=== PATIENT | male | born 1975 | race Caucasian/White ===

== ENCOUNTER 2017-08-28 14:30 | Emergency (ER) | payer BC ==
[~2017-08-28] VITALS: Ht 157.5 cm; Wt 74.0 kg
[2017-08-28 14:30] VITALS: Ht 157.5 cm; Wt 74.0 kg
[2017-08-28] MEDS ORDERED: LORAZEPAM 2 MG INJ ONE (14:54)
[2017-08-28] MEDS ORDERED: LIDOCAINE 1%/EPI 30 ML INJ INJ STA (14:56)
[2017-08-28] MEDS ORDERED: LORAZEPAM 2 MG INJ IV ONE ×4 (15:00→15:30)
[2017-08-28] MEDS ORDERED: DIPHTH/TET/ACEL PERTUSS (ADULT) 0.5 ML VIAL IM* ONE (15:00)
[2017-08-28 16:00] LABS: BASOPHIL # 0.2 10^3/ul (0.0-0.1); BASOPHILS % 2.3 % (0.0-2.0); EOSINOPHILS # 0.1 10^3/ul (0.0-0.5); EOSINOPHILS % 1.2 % (0.0-7.0); HEMATOCRIT 32.7 % (42.0-52.0); HEMOGLOBIN 10.6 g/dl (14.0-18.0); LYMPHOCYTES # 1.6 10^3/ul (0.8-2.9); LYMPHOCYTES % 22.9 % (15.0-51.0); MEAN CORPUSCULAR HEMOGLOBIN 24.7 pg (29.0-33.0); MEAN CORPUSCULAR HGB CONC 32.4 g/dl (32.0-37.0); MEAN PLATELET VOLUME 9.6 fl (7.4-10.4); MONOCYTE # 0.7 10^3/ul (0.3-0.9); MONOCYTES % 9.9 % (0.0-11.0); NEUTROPHIL # 4.4 10^3/ul (1.6-7.5); NEUTROPHILS % 63.4 % (39.0-77.0); PLATELET COUNT 205 10^3/UL (140-415); RED CELL DISTRIBUTION WIDTH 18.6 % (11.5-14.5); WHITE BLOOD COUNT 6.9 10^3/ul (4.8-10.8)
[2017-08-28 16:17] LABS: INR 0.94; PROTIME 12.7 Sec (11.9-14.9)
[2017-08-28 16:18] LABS: PARTIAL THROMBOPLASTIN TIME 28.6 Sec (25.0-35.0)
[2017-08-28 16:20] LABS: CALCIUM 8.4 mg/dl (8.4-10.2); CREATININE 0.54 mg/dl (0.61-1.24); POTASSIUM 3.8 mmol/L (3.5-5.1)
--- NOTE | 2017-08-28 17:55 | ERD ---
ER Documentation Chief Complaint Chief Complaint PT IS BIBA FOR LAC ON HEAD AFTER A MECHANICAL FALL ETOH ON BOARD HPI This is a 42-year-old Macanese-speaking male. An coffee sommelier was used. The patient was brought in by ambulance for alcohol intoxication, mechanical fall and laceration of the head. Later after the patient had been stabilized his family arrives and states that he has developmental delay and has reported suicidal thoughts recently. He states that he had been trying to drink himself to . The family does advise that the patient was ambulatory tripped and fell and hit his head. It was witnessed. Upon arrival the patient has significant bleeding from the left forehead with evidence of pulsatile bleeding. The patient is poorly cooperative, trying to get up and move around and slightly combative. The patient cannot provide adequate history given his level of intoxication. ROS Limited given intoxication Medications Home Meds Unable to Obtain Active Prescriptions or Reported Meds Allergies Allergies: Coded Allergies: No Known Allergy (Unverified , 08/28/17) PMhx/Soc Medical and Surgical Hx: Unable to obtain Hx Alcohol Use: Yes Hx Substance Use: Yes Hx Tobacco Use: Yes Smoking Status: Current every day smoker FmHx Family History: No diabetes Physical Exam Vitals Vital Signs Date Time Temp Pulse Resp B/P Pulse Ox O2 Delivery O2 Flow Rate FiO2 08/28/17 18:10 98.2 77 18 117/58 99 08/28/17 16:49 98.5 98 22 130/84 100 Room Air 08/28/17 14:30 98.5 78 18 135/86 99 Physical Exam General: Significantly intoxicated with evidence of head trauma Head: The patient has a frontal head hematoma on the left side of the forehead with a approximate 3 cm laceration that is oblique with a pulsatile stream of blood visualized. Eyes: Pupils equally reactive, EOM intact ENT: Moist mucous membranes Neck: Supple, no lymphadenopathy, unable to assess but no deformities or step- offs to the midline, remains in cervical collar Respiratory: Lungs clear bilaterally, no distress Cardiovascular: RRR, no murmurs, rubs, or gallops Abdominal: Soft, non-tender, non-distended, no peritoneal signs : Deferred MSK: No edema, no unilateral swelling, 5/5 strength Neurologic: Significantly intoxicated but moving all 4 extremities Skin: Forehead laceration as described above, the base of the wound is difficult to visualize given pulsatile vasculature Psych: Normal mood Result Diagram: 08/28/17 1545 08/28/17 1545 Results 24 hrs Laboratory Tests Test 08/28/17 15:45 White Blood Count 6.910^3/ul Red Blood Count 4.3010^6/ul Hemoglobin 10.6g/dl Hematocrit 32.7% Mean Corpuscular Volume 76.0fl Mean Corpuscular Hemoglobin 24.7pg Mean Corpuscular Hemoglobin Concent 32.4g/dl Red Cell Distribution Width 18.6% Platelet Count 17413^3/UL Mean Platelet Volume 9.6fl Neutrophils % 63.4% Lymphocytes % 22.9% Monocytes % 9.9% Eosinophils % 1.2% Basophils % 2.3% Nucleated Red Blood Cells % 0.0/100WBC Neutrophils # 4.410^3/ul Lymphocytes # 1.610^3/ul Monocytes # 0.710^3/ul Eosinophils # 0.110^3/ul Basophils # 0.210^3/ul Nucleated Red Blood Cells # 0.010^3/ul Prothrombin Time 12.7Sec Prothrombin Time Ratio 1.0 INR International Normalized Ratio 0.94 Activated Partial Thromboplast Time 28.6Sec Sodium Level 134mmol/L Potassium Level 3.8mmol/L Chloride Level 96mmol/L Carbon Dioxide Level 22mmol/L Anion Gap 20 Blood Urea Nitrogen 2mg/dl Creatinine 0.54mg/dl Glucose Level 109mg/dl Calcium Level 8.4mg/dl Ethyl Alcohol Level 440.0mg/dl Current Medications Medications (Trade) Dose Ordered Sig/Terri Route PRN Reason Start Time Stop Time Status Last Admin Dose Admin Lorazepam (Ativan) 2 mg STK-MED ONCE .ROUTE 08/28/17 14:54 08/28/17 14:55 DC Lidocaine/ Epinephrine (Xylocaine 1%/ Epi (Pf)) 30 ml ONCE STAT INJ 08/28/17 14:56 08/28/17 15:02 DC Diphtheria/ Tetanus/Acell Pertussis (Adacel) 0.5 ml ONCE ONCE IM* 08/28/17 15:00 08/28/17 15:02 DC 08/28/17 15:37 Lorazepam (Ativan) 1 mg ONCE ONCE IV 08/28/17 15:00 08/28/17 15:02 DC 08/28/17 15:28 Lorazepam (Ativan) 1 mg ONCE ONCE IV 08/28/17 15:30 08/28/17 15:31 DC 08/28/17 15:30 Lorazepam (Ativan) 1 mg ONCE ONCE IV 08/28/17 15:30 08/28/17 15:31 DC 08/28/17 15:38 Lorazepam (Ativan) 1 mg ONCE ONCE IV 08/28/17 15:30 08/28/17 15:31 DC 08/28/17 15:34 Procedures/MDM EKG, MONITORS, & DIAGNOSTIC IMAGING: CT brain: No evidence of acute intracranial hemorrhage per radiologist read CT cervical spine: No evidence of acute fracture, dislocation, subluxation per radiologist read PROCEDURES: Laceration Note: Patient is intoxicated. Length: 3.0 cm Irrigation: Thorough irrigation was performed with pressure is normal saline Inspection: There is no evidence of deep tissue or structural injury, no evidence of foreign bodies Anesthesia: 1% lidocaine with epinephrine approximately 6 cc Repair: The patient had complicated repair given it was difficult to visualize given pulsatile vasculature. 2 absorbable sutures were placed deep in a figure- of-eight technique without significant blood control. Several other simple interrupted sutures placed to close the wound, the patient still had bleeding and a horizontal mattress suture was placed using 4-0 Vicryl was placed with excellent hemostasis. A clean dressing was applied. The patient tolerated the procedure well with no complications. LAB INTERPRETATION: Significant alcohol elevation MEDICAL DECISION MAKING: Upon arrival the patient was significantly intoxicated. He required multiple redirection as he could try to get up and walk around and was a significant fall risk. The patient was also agitated. He was given verbal warning but required restraints. The patient will be given 3 doses of Ativan spit up over time. A total of 3 mg provided. Restrains: Indication: Alcohol intoxication, fall risk Location: 4 point restraints to bilateral upper and lower extremities The patient was given verbal warnings that if the behavior continued the patient would require physical and/or chemical restraints. Despite verbal warnings the behavior continued and restraints were applied. The patient had a bedside reevaluation within 50 minutes of placement of restraints. Patient remained stable. ER COURSE: Upon arrival the patient had active hemorrhage that required hemostasis. Please see documentation above. The patient is hemostasis and a pressure dressing was applied. His tetanus was updated. The patient is significantly intoxicated but the family is also reporting potential suicidal ideation. The patient will benefit from telemetry medicine psychiatry evaluation once he is more sober. The patient also has significant head injury and will benefit from CT imaging of the head and cervical spine. The patient will require C-spine immobilization until he is sober and can be reevaluated. The patient seems to be improving, he continues to protect his airway. The patient CT imaging is negative. His bleeding is controlled. The patient is pending sobriety for repeat cervical spine evaluation, clearance of cervical spine and evaluation by telemetry medicine psychiatry I kept the patient and/or family informed of laboratory and diagnostic imaging results throughout the emergency room course. DISPOSITION PLAN: Pending sobriety and telemetry medicine psychiatry evaluation Departure Diagnosis: Primary Impression: Acute alcohol intoxication Complication of substance-induced condition: uncomplicated Qualified Code: F10.929 - Acute alcoholic intoxication without complication Additional Impressions: Suicidal ideation Forehead laceration Encounter type: initial encounter Qualified Code: S01.81XA - Laceration of forehead, initial encounter Closed head injury Encounter type: initial encounter Qualified Code: S09.90XA - Closed head injury, initial encounter Condition: Stable SHARAD SALDANA MD Aug 28, 2017 17:55
--- NOTE | 2017-08-28 19:09 | RADRPT ---
PROCEDURE: CT Brain without contrast. CLINICAL INDICATION: Head trauma. TECHNIQUE: A CT of the brain was performed on a GE [employer] 64-slice CT scanner utilizing axial imaging from the skull base through the vertex without IV contrast. Multiplanar reformatted images were made. Images were reviewed on a PACS workstation. One or more the following dose reduction joe hniques were utilized: Automated exposure control, adjustment of mA/ or kV according to patient's s ize, or use of iterative reconstruction technique. DICOM images are available for review. The CTDIv ol is 39 mGy and the DLP is 7 and 20.2 mGycm. COMPARISON: None FINDINGS: There is significant motion artifact, though no gross acute intracranial hemorrhage, mass effect or midline shift is evident. Please note that the patient move significantly during examination which d oes limit this study. No extra-axial fluid collection is seen. The ventricles and sulci are overall normal in size and configuration. The density of the brain appears grossly normal, and the vann whit e matter differentiation appears well-preserved. The visualized paranasal sinuses and osseous struc tures are grossly unremarkable. IMPRESSION: 1. This study is limited by patient motion, though there is no gross evidence of acute intracranial pathology. 2. The brain is grossly normal in appearance. RPTAT: PP .Viky Bernabe MD, MD Date Time Electronically viewed and signed by .Viky Bernabe MD, MD on 08/28/2017 19:09 .H/
--- NOTE | 2017-08-28 19:15 | RADRPT ---
PROCEDURE: CT Cervical Spine without contrast. CLINICAL INDICATION: Trauma. TECHNIQUE: A CT of the cervical spine was performed on a GE [employer] 64-slice CT scanner uti lizing thin section axial images from the skull base through the thoracic inlet. Sagittal and coron al reformatted images were made. One or more the following dose reduction techniques were utilized: Automated exposure control, adjustment of the mA/ or kV according to patient's size, or use of iter ative reconstruction technique. DICOM images are available for review. The CTDIvol is 22.3 mGy and the DLP is 616.7 mGycm. COMPARISON: No prior studies are available for comparison. FINDINGS: This study as somewhat limited by patient motion artifact. The lordosis is relatively well preserved . There appears to be trace retrolisthesis at C4-5. No definite fracture is seen, though again motio n artifact does limit evaluation, particularly at the C3, C4, and C5 levels. The proximal esophagus is fluid-filled and moderately dilated. C2-3: The disc is normal in height. No significant disk bulge or protrusion is evident. There is no central canal stenosis or foraminal narrowing. C3-4: The disc is normal in height. There is a small posterior osteophyte/disc complex with probable mild central stenosis. Uncovertebral osteophytes and facet arthropathy contributes to minimal right and moderate left foraminal narrowing. C4-5: There does appear to be disc space narrowing. An osteophyte/disc complex results in probable m oderate central stenosis. There may be mild to moderate foraminal narrowing bilaterally. C5-6: The disc is grossly normal in height. There appears to be of this broad-based posterior disc p rotrusion resulting in mild central stenosis. Uncovertebral osteophytes contribute to minimal forami nal stenosis, right worse than left. C6-7: The disc is normal in height. No significant disk bulge or protrusion is evident. There is no central canal stenosis or foraminal narrowing. C7-T1: The disc is normal in height. No significant disk bulge or protrusion is evident. There is no central canal stenosis or foraminal narrowing. IMPRESSION: 1. The examination is limited by patient motion as described above, though there is no gross eviden ce of acute fracture or suspected traumatic subluxation. 2. Suspect moderate central stenosis at C4-5 and mild central stenosis at C3-4 and C5-6. 3. Fluid-filled slightly dilated esophagus. RPTAT: PP .Viky Bernabe MD, Date Time Electronically viewed and signed by .Viky Bernabe MD, on 08/28/2017 19:14 .H/
--- NOTE | 2017-08-29 01:07 | PSY ---
Date/Time of Note Date/Time of Note DATE: 08/29/17 TIME: 00:59 Psychiatric Subjective Eval Consent Pt consented to telemedicine: Yes Subjective Evaluation Patient location: emergency Chief Complaint: PT IS BIBA FOR LAC ON HEAD AFTER A MECHANICAL FALL ETOH ON BOARD Reason for consult: anxiety and alcohol abuse History of present illness patient is a 42 yo male with PPH Of depression and anxiety as well as alcohol dependence since he was 16 yo who was brought in to the ER after he fell and hit his head while being intoxicated with alcohol, he states that he drinks because if he does not he gets shakes and gets angry, but he wants to stop drinking , he states that he feels depressed because his drinking has caused much harm, he states that he is worried and irritable most of the time and calm himself down by drinking, he denies any past or current manic or psychotic symptoms, he denies any current si or hi. denies any drug abuse. Past psychiatric history no past suicidal attempt Hospitalization: no Family History denies Medical history Problems Medical Problems: (1) Acute alcohol intoxication Status: Acute (2) Closed head injury Status: Acute (3) Forehead laceration Status: Acute (4) Suicidal ideation Status: Acute Allergies: Coded Allergies: No Known Allergy (Unverified , 08/28/17) Substance Abuse Substance abuse history: Yes (alcohol ) Prior substance abuse treatmen: No Social History Marital status: single Level of education: hs DPA/Conservatorship: No Occupation/Longterm: no Psychiatric Objective Eval Review of Systems: Review of Systems: Not Applicable Physical Examination: Physical Examination: Applicable Sleep: Insomnia Appetite: Decreased Energy: Decreased Interest: Decreased Mental Status Examination: Appearance: Groomed Eye Contact: Good Psychomotor Activity: Normal Behavior: Cooperative Speech: Clear AFFECT: Depressed Mood: Anxious Though Process: Linear Thought Content: Normal Suicidal: No Homicidal: No On 72 hour hold: No Orientation: x3 Cognition: Alert Insight: Intact Judgement: Intact Attention Span: Intact Laboratory Results Laboratory Tests Test 08/28/17 15:45 White Blood Count 6.910^3/ul Red Blood Count 4.3010^6/ul Hemoglobin 10.6g/dl Hematocrit 32.7% Mean Corpuscular Volume 76.0fl Mean Corpuscular Hemoglobin 24.7pg Mean Corpuscular Hemoglobin Concent 32.4g/dl Red Cell Distribution Width 18.6% Platelet Count 25905^3/UL Mean Platelet Volume 9.6fl Neutrophils % 63.4% Lymphocytes % 22.9% Monocytes % 9.9% Eosinophils % 1.2% Basophils % 2.3% Nucleated Red Blood Cells % 0.0/100WBC Neutrophils # 4.410^3/ul Lymphocytes # 1.610^3/ul Monocytes # 0.710^3/ul Eosinophils # 0.110^3/ul Basophils # 0.210^3/ul Nucleated Red Blood Cells # 0.010^3/ul Prothrombin Time 12.7Sec Prothrombin Time Ratio 1.0 INR International Normalized Ratio 0.94 Activated Partial Thromboplast Time 28.6Sec Sodium Level 134mmol/L Potassium Level 3.8mmol/L Chloride Level 96mmol/L Carbon Dioxide Level 22mmol/L Anion Gap 20 Blood Urea Nitrogen 2mg/dl Creatinine 0.54mg/dl Glucose Level 109mg/dl Calcium Level 8.4mg/dl Ethyl Alcohol Level 440.0mg/dl Assessment and Plan Assessment/Diagnosis Garvin I: mood do nos anxiety do nos alcohol dependence Garvin II: deferred Garvin III: as per record Garvin IV: poor social support Garvin V: gaf 65 Recommendation/Plan Medication Management ativan 2 mg po bid for one week and then 1 mg po bid for 3 weeks for anxiety and alcohol withdrawal prevention Psychotherapy AA meeting Follow-up/Disposition In my opinion,for this patient, outpatient care is the least restrictive option. Based on available evidence, ~this condition CAN be safely treated at a lower level of care effective today. Patient is stable without ~clear and convincing evidence of imminent danger due to mental illness that requires acute inpatient psychiatric ~care as the least restrictive alternative. Please discharge patient with referral for follow up to a outpatient mental health clinic for psychotherapy and medication. REGINO PENA MD Aug 29, 2017 01:07
[2017-08-29] MEDS ORDERED: LORA1TAB PO (01:24)
--- NOTE | 2017-08-29 01:29 | EN ---
Date/Time of Note Date/Time of Note DATE: 08/29/17 TIME: 01:27 ER Progress Note Indication: Etoh Intoxication, SI Duration: 4 hr Family History: As documented in the original HPI The patient was observed with serial exams over the above timeframe. The patient continued to be well-appearing and observation continued without complication. All other needs have been met during emergency department stay. Routine psychiatric medications ordered: Yes, see EMR Not requested by telemetry medicine psychiatry Hold status: Telemetry medicine psychiatry does not recommended 5150 hold and recommended Ativan 2 mg bid 1 wk, then 1 mg bid 3 wk I prescribed him Ativan 2 mg bid 1 wk, advised him to f/u with his pcp in 2-3 days for more Ativan as recommended by psychiatrist Placement status: [place] JANNA BHANDARI MD Aug 29, 2017 01:29
[2017-08-29 01:51] VITALS: BP 110/62; PULSE 89; RESP 18; TEMP 98.3
== END 2017-08-29 01:54 | disposition home or self-care (01) ==
LOC: E/R 14:30
DX: F10.929 Alcohol use, unspecified with intoxication, unspecified (principal); R45.851 Suicidal ideations; S09.90XA Unspecified injury of head, initial encounter; F17.210 Nicotine dependence, cigarettes, uncomplicated; R40.2142 Coma scale, eyes open, spontaneous, at arrival to emergency department; R40.2242 Coma scale, best verbal response, confused conversation, at arrival to emergency department; R40.2362 Coma scale, best motor response, obeys commands, at arrival to emergency department; R06.02 Shortness of breath; W18.39XA Other fall on same level, initial encounter; Y92.9 Unspecified place or not applicable
CPT/HCPCS: 12052; 70450; 72125; 80048; 80306; 85025; 85610; 85730; 90715; J2060; Z7610; 90471; 96374

== ENCOUNTER 2017-09-05 10:39 | Emergency (ER) | payer BC ==
[~2017-09-05] VITALS: Ht 162.6 cm; Wt 56.6 kg
[~2017-09-05 10:39] MED LIST: LORA1TAB PO
[2017-09-05 10:43] VITALS: Ht 162.6 cm; Wt 56.6 kg
--- NOTE | 2017-09-05 11:58 | ERD ---
ER Documentation Chief Complaint Chief Complaint FOR SUTURE REMOVAL,LEFT TEMPORAL AREA HPI This is a 42-year-old male presents to the ER for suture removal. Patient has had the sutures for over a week now. He does not have any redness, swelling, pain to the area is on any fevers or chills. Patient urgently fell because he was intoxicated by alcohol and he tripped. Patient states he has been feeling well since accident. ROS 12 point review of systems was done, all negative except per HPI. Medications Home Meds Active Scripts Lorazepam* (Lorazepam*) 1 Mg Tablet, 2 MG PO BID, #14 TAB Prov:JANNA BHANDARI MD 08/29/17 Allergies Allergies: Coded Allergies: No Known Allergy (Unverified , 08/28/17) PMhx/Soc History of Surgery: No Anesthesia Reaction: No Hx Neurological Disorder: No Hx Respiratory Disorders: No Hx Cardiac Disorders: No Hx Psychiatric Problems: No Hx Miscellaneous Medical Probl: No Hx Alcohol Use: Yes Hx Substance Use: Yes Hx Tobacco Use: Yes Smoking Status: Current some day smoker Physical Exam Vitals Vital Signs Date Time Temp Pulse Resp B/P Pulse Ox O2 Delivery O2 Flow Rate FiO2 09/05/17 10:43 97.9 78 18 194/91 99 Physical Exam GENERAL: The patient is well developed and appropriate for usual state of health , in no apparent distress. HEENT: Atraumatic. CHEST: Clear to auscultation bilaterally. There are no rales, wheezes or rhonchi. HEART: Regular rate and rhythm. No murmurs, clicks, rubs or gallops.s. NEURO: Alert and oriented. SKIN: 4 simple interrupted sutures in place. no wound discharge, no surrounding erythema, no wound dehiscence, not ttp Procedures/MDM Suture Removal by me: Sutures removed with tweezers and scissors without incident. Wound shows no evidence of infection, foreign body, neurologic injury, vascular injury, open joint or tendon laceration. Patient to follow up PRN. Departure Diagnosis: Primary Impression: Visit for suture removal Condition: Stable Patient Instructions: Suture Removal, No Complication Additional Instructions: Call your primary care doctor TOMORROW for an appointment during the next 1-2 days.See the doctor sooner or return here if your condition worsens before your appointment time. DIANNE ROSS Sep 05, 2017 11:58
== END 2017-09-05 11:54 | disposition home or self-care (01) ==
LOC: FTE 10:39
DX: Z48.02 Encounter for removal of sutures (principal); F17.210 Nicotine dependence, cigarettes, uncomplicated
CPT/HCPCS: 99281

== ENCOUNTER 2018-12-09 14:58 | Emergency (ER) | payer BC ==
[~2018-12-09] VITALS: Ht 167.6 cm; Wt 64.0 kg
[2018-12-09 15:06] VITALS: Ht 167.6 cm; Wt 64.0 kg
[2018-12-09] MEDS ORDERED: ONDANSETRON 4 MG INJ IV STA (17:42)
[2018-12-09] MEDS ORDERED: LIDOCAINE/MYLANTA 40 ML BTL PO STA (17:42)
[2018-12-09] MEDS ORDERED: FAMOTIDINE 20 MG INJ IV STA (17:42)
[2018-12-09] MEDS ORDERED: SOD CHLORIDE 0.9% 1,000 ML IV STA ×2 (17:42)
--- NOTE | 2018-12-09 17:50 | ERD ---
ER Documentation Chief Complaint Chief Complaint HEMATEMSIS X 3 TIMES TODAY, + VOMITING HPI This is a 43-year-old male with a nonsignificant past medical history presents ED with complaints of nausea vomiting and diarrhea since this morning. Patient states that he has had 3 episodes of nonbilious vomiting that had streaks of blood in it Patient states that the blood was minimal and that there were no clots. Patient also had multiple episodes of nonbloody diarrhea. Patient states that earlier today when he attempted to eat the food would aggravate his pain and because a burning sensation in his central chest. Patient states that this burning sensation was off-and-on for about 4 hours today. Admits to subjective fevers but has not taken temperature. Denies cough, congestion, runny nose, shortness of breath, trouble breathing, wheezing, ear pain, sore throat, abdominal pain, melena, hematochezia, constipation and all other symptoms. No known drug allergies. Patient denies cardiac risk factors including: hypertension, diabetes mellitus, hypercholesterolemia, physical inactivity, smoking, hx of CAD, and prior stress/cath. Has not drink alcohol in over 9 months. ROS All systems reviewed and are negative except as per history of present illness. Medications Home Meds Active Scripts Lorazepam* (Lorazepam*) 1 Mg Tablet, 2 MG PO BID, #14 TAB Prov:JANNA BHANDARI MD 08/29/17 Allergies Allergies: Coded Allergies: No Known Allergy (Unverified , 08/28/17) PMhx/Soc Medical and Surgical Hx: pt denies Medical Hx, pt denies Surgical Hx History of Surgery: No Anesthesia Reaction: No Hx Neurological Disorder: No Hx Respiratory Disorders: No Hx Cardiac Disorders: No Hx Psychiatric Problems: No Hx Miscellaneous Medical Probl: No Hx Alcohol Use: Yes Hx Substance Use: Yes Hx Tobacco Use: Yes Smoking Status: Never smoker FmHx Family History: No diabetes Physical Exam Vitals Vital Signs Date Temp Pulse Resp B/P (MAP) Pulse Ox O2 O2 Flow FiO2 Time Delivery Rate 12/09/18 99.8 112 18 140/82 100 15:06 (101) Physical Exam Physical Exam Vitals signs: Reviewed by me. General: Well developed, well nourished, in no acute distress. Patient is awake and alert. Resting peacefully on stretcher Head: Normocephalic, atraumatic. Eyes: Normal conjunctiva, Pupils PERRLA, EOM intact grossly ENT: Pharynx is clear, Moist mucous membranes, external ears, nose and mouth normal, no dry mucous membranes, no tonsillar adenopathy, exudate or erythema, no kissing tonsils, no uvula deviation, normal nasal mucosa Neck: Supple, no masses, lymphadenopathy or JVD Respiratory: Clear to auscultation bilaterally with no wheezing, rhonchi, rales, no distress Cardiovascular: RRR, no murmurs, rubs, or gallops Abdominal: Soft, nondistended, no peritoneal signs, no rigidity, no surgical abdomen, bowel sounds present all 4 quadrants, nontender light deep palpation all 4 quadrants, Islas sign negative, no rebound tenderness MSK: No edema, no unilateral swelling, 5/5 strength Back: No midline tenderness. Neurologic: Alert and oriented, moving all extremities, normal speech, no focal weakness, no cerebellar signs. Normal mentation Skin: warm and dry, No rash Psych: Normal mood Result Diagram: 12/09/18 1800 12/09/18 1800 Results 24 hrs Laboratory Tests Test 12/09/18 18:00 White Blood Count 14.5 10^3/ul Red Blood Count 5.13 10^6/ul Hemoglobin 10.3 g/dl Hematocrit 36.9 % Mean Corpuscular Volume 71.9 fl Mean Corpuscular Hemoglobin 20.1 pg Mean Corpuscular Hemoglobin Concent 27.9 g/dl Red Cell Distribution Width 17.8 % Platelet Count 412 10^3/UL Mean Platelet Volume 9.2 fl Immature Granulocytes % 0.800 % Neutrophils % 82.3 % Lymphocytes % 10.9 % Monocytes % 5.5 % Eosinophils % 0.1 % Basophils % 0.4 % Nucleated Red Blood Cells % 0.0 /100WBC Immature Granulocytes # 0.120 10^3/ul Neutrophils # 11.9 10^3/ul Lymphocytes # 1.6 10^3/ul Monocytes # 0.8 10^3/ul Eosinophils # 0.0 10^3/ul Basophils # 0.1 10^3/ul Nucleated Red Blood Cells # 0.0 10^3/ul Prothrombin Time 12.4 Sec Prothrombin Time Ratio 1.0 INR International Normalized Ratio 0.91 Activated Partial Thromboplast Time 25.8 Sec Sodium Level 144 mmol/L Potassium Level 4.5 mmol/L Chloride Level 105 mmol/L Carbon Dioxide Level 28 mmol/L Anion Gap 11 Blood Urea Nitrogen 7 mg/dl Creatinine 0.64 mg/dl Est Glomerular Filtrat Rate mL/min > 60 mL/min Glucose Level 108 mg/dl Calcium Level 10.4 mg/dl Total Bilirubin 0.3 mg/dl Direct Bilirubin 0.00 mg/dl Indirect Bilirubin 0.3 mg/dl Aspartate Amino Transf (AST/SGOT) 25 IU/L Alanine Aminotransferase (ALT/SGPT) 18 IU/L Alkaline Phosphatase 112 IU/L Troponin I < 0.012 ng/ml Total Protein 8.9 g/dl Albumin 4.5 g/dl Globulin 4.40 g/dl Albumin/Globulin Ratio 1.02 Lipase 52 U/L Current Medications Medications Dose Sig/Terri Start Time Status Last (Trade) Ordered Route PRN Stop Time Admin Dose Reason Admin Sodium 1,000 ml @ Q1H STAT 12/09/18 DC 12/09/18 Chloride 1,000 mls/hr IV 17:42 17:57 12/09/18 18:41 Sodium 1,000 ml @ Q1H STAT 12/09/18 DC 12/09/18 Chloride 1,000 mls/hr IV 17:42 18:06 12/09/18 18:41 Ondansetron 4 mg ONCE STAT 12/09/18 DC 12/09/18 HCl (Zofran IV 17:42 17:57 Inj) 12/09/18 17:45 Famotidine 20 mg ONCE STAT 12/09/18 DC 12/09/18 (Pepcid Iv) IV 17:42 17:57 12/09/18 17:45 40 ml ONCE STAT 12/09/18 DC 12/09/18 Miscellaneous PO 17:42 17:57 Medication 12/09/18 17:45 (Gi Cocktail (2)) Procedures/MDM EKG, MONITORS, & DIAGNOSTIC IMAGING: [place] [address] Radiology Main Line: [phone] DIAGNOSTIC IMAGING REPORT Patient: DONNELL HAYS : 1975 Age: 43 Sex: M MR #: [id number] DOS: 12/09/18 6638 Ordering MD: YO GILBERT PA-C Location: [facility] Room/Bed: PROCEDURE: XR Chest. CLINICAL INDICATION: Chest pain. TECHNIQUE: Single frontal view. COMPARISON: None. FINDINGS: The lungs are clear. The heart size is normal. There is no pleural effusion. There is no pneumothorax. IMPRESSION: 1. Normal chest radiograph. RPTAT: QQ .Hernandez Morejon MD, Date Time Electronically viewed and signed by .Hernandez Morejon MD, on 12/09/2018 18:29 .R/ CC: YO GILBERT PA-C [id number] EKG read by born: Rate/Rhythm: Regular rate and rhythm at a rate of 83 Intervals: Normal Impression: No evidence of ischemia or arrhythmia No ST elevation, no peak T waves, no widened QRS, RI interval per ligation, no QT interval prolongation LAB INTERPRETATION: CBC remarkable for an elevated WBC of 14.5, decreased hemoglobin 10.3, decreased hematocrit 36.9, elevated neutrophil percentage 82.3% Chemistry shows no evidence of significant electrolyte abnormalities or renal insufficiency Liver function test shows no evidence of acute biliary or hepatic dysfunction Coagulation study showed no concerning coagulopathy Lipase shows no evidence of acute pancreatitis Cardiac biomarkers show no evidence of acute myocardial injury or coronary ischemia ER COURSE: The patient was given IV normal saline, Zofran, GI cocktail and Pepcid The medication was well tolerated and the patient reports improvement in symptoms. The patient was stable throughout ED course. I kept the patient and/or family informed of laboratory and diagnostic imaging results throughout the emergency room course. The patient was promptly evaluated and a treatment plan was devised based on H&P and other data. This plan was discussed with the patient who agreed and had no further questions or concerns prior to discharge. MEDICAL DECISION MAKING: This is a 43-year-old male presents ED with complaints of nausea and vomiting and diarrhea times 1 day. Patient admits to having 3 episodes of vomiting that had streaks of blood within it Today. Differential diagnoses include but are not limited to gastritis, gastroenteritis, peptic ulcer disease, gastric cancer, Mervat-Barber tear, esophageal rupture, GERD, among others. Patient's abdomen is nontender to palpation during examination and at discharge. Patient was given medicine in the emergency department and reports resolution of symptoms. Patient has not had any episodes of vomiting in the emergency department today. Blood work is remarkable for a slightly elevated leukocytosis as well as mild anemia. This is likely a gastritis with a possible Mervat-Barber tear. Patient was advised to follow-up with repertoire manager to rule out peptic ulcer dis ease. Discussed case with overseeing physician Dr. Hernández and he advises that this patient can be managed close outpatient follow-up. This time there is no evidence of gastrointestinal emergency. No evidence of esophageal rupture, intra-abdominal hemorrhage, appendicitis, small bowel obstruction, c holecystitis, cholangitis, pancreatitis, perforated viscus, volvulus, perforated viscus, acute coronary syndrome, STEMI, NSTEMI, PE, pleural effusion, pneumothorax, tension pneumothorax, pericarditis, endocarditis, among others. Vitals are stable patient can be managed close outpatient follow-up. Advised patient follow-up with primary care in the next 48 hours. Return to ED with any worsening symptoms DISPOSITION PLAN: We discussed follow up with the patient's primary care doctor within 24 to 48 hours. Patient counseled regarding my diagnostic impression and care plan. Prior to discharge all questions answered. Pt agrees with treatment plan and understands strict return precautions. Precautionary instructions provided including instructions to return to the ER if not improving or for any worsening or changing symptoms or concerns. SPECIALIST FOLLOW UP RECOMMENDED: None Patient has been advised to follow up with primary care in 1-2 days. Disclaimer: Inadvertent spelling and grammatical errors are likely due to EHR/dictation software use and do not reflect on the overall quality of patient care. Also, please note that the electronic time recorded on this note does not necessarily reflect the actual time of the patient encounter. Departure Diagnosis: Primary Impression: Nausea & vomiting Vomiting type: unspecified Vomiting Intractability: non-intractable Qualified Codes: R11.2 - Nausea with vomiting, unspecified Additional Impressions: Diarrhea Diarrhea type: unspecified type Qualified Codes: R19.7 - Diarrhea, unspecified Anemia Anemia type: unspecified type Qualified Codes: D64.9 - Anemia, unspecified Leukocytosis Leukocytosis type: unspecified Qualified Codes: D72.829 - Elevated white blood cell count, unspecified Hematemesis Nausea presence: with nausea Qualified Codes: K92.0 - Hematemesis Condition: Stable Patient Instructions: Anemia, Gastritis (Adult), Gastritis Vs. Ulcer, Nausea and Vomiting-Adult, Treating Diarrhea Referrals: BECKY BRADY MD,ENOC LOZANO MD, MD,LOPEZ ESPINOZA MD, MD,SAIGE HART,VANNESA Gomes MD [facility] () Additional Instructions: Paciente aconseja volver a Departamento de urgencias inmediatamente para sntomas nuevos o que empeoran . Paciente aconseja posteriores con el PCP en 1-2 winkler . Paciente verbaliza la comprehensin y est de acuerdo con el tratamiento y el curso de accin. Si el paciente no tiene ninguna de atencin primaria pueden [facility]ir [facility] [address] [place] [address] o [facility] + [address] [address] YO GILBERT PA-C Dec 09, 2018 17:50
[2018-12-09] MEDS ORDERED: OMEP20CA16 PO (19:27)
[2018-12-09] MEDS ORDERED: FAMO-96 PO (19:27)
[2018-12-09 19:38] VITALS: BP 134/79; PULSE 84; RESP 18
== END 2018-12-09 19:38 | disposition home or self-care (01) ==
LOC: FTE 14:58
DX: K92.0 Hematemesis (principal); R19.7 Diarrhea, unspecified; D64.9 Anemia, unspecified; D72.829 Elevated white blood cell count, unspecified; R07.9 Chest pain, unspecified
CPT/HCPCS: 36415; 71045; 80053; 83690; 84484; 85025; 85610; 85730; 93005; 96374; 96375; 99285; J2405; J7030; Z7610

== ENCOUNTER 2019-02-26 08:23 | Day surgery (SDC) | payer BC ==
[~2019-02-26] VITALS: Ht 165.1 cm; Wt 66.2 kg
[~2019-02-26 08:23] MED LIST changes: +FAMO-96 PO; +OMEP20CA16 PO
[2019-02-26 09:37] VITALS: Ht 165.1 cm; Wt 66.2 kg
[2019-02-26] MEDS ORDERED: OMEPRAZOLE (09:42)
[2019-02-26] MEDS ORDERED: FERROUS SULFATE (09:42)
[2019-02-26 09:53] VITALS: BP 155/92; PULSE 77; RESP 20
[2019-02-26] MEDS ORDERED: PROPOFOL 20 ML ONE (10:18)
[2019-02-26] MEDS ORDERED: ETOMIDATE 20 MG INJ ONE (10:19)
[2019-02-26] MEDS ORDERED: LIDOCAINE 100 MG SYRINGE ONE (10:19)
--- NOTE | 2019-02-26 10:21 | PREAC ---
Date/Time of Note Date/Time of Note DATE: 02/26/19 TIME: 10:21 Anesthesia Eval and Record Evaluation Time Pre-Procedure Interview DATE: 02/26/19 TIME: 10:21 Age 43 Sex male NPO: 8 hrs Preoperative diagnosis obstruction Planned procedure egd Past Medical History Past Medical History: Includes Hepatic: Alcohol abuse Heme: Anemia Surgery & Anesthesia Issues No known issue Meds Anticoagulation: No Beta James within 24 hr: No Reason Beta James not given: Pt. not on B-James Active Scripts Omeprazole* (Omeprazole*) 20 Mg Capsule.dr, 20 MG PO BID, #20 Prov:YO GILBERT PA-C 12/09/18 Famotidine* (Pepcid*) 20 Mg Tablet, 20 MG PO BID for 4 Days, TAB Prov:YO GILBERT PA-C 12/09/18 Lorazepam* (Lorazepam*) 1 Mg Tablet, 2 MG PO BID, #14 TAB Prov:JANNA BHANDARI MD 08/29/17 Reported Medications [Omeprazole] No Conflict Check 02/26/19 [Ferrous Sulfate] No Conflict Check 02/26/19 Meds reviewed: Yes Allergies Coded Allergies: No Known Allergy (Unverified , 08/28/17) Allergies Reviewed: Yes Labs/Studies Labs Reviewed: Reviewed by anesthesiologist test: N/A Pre-procedure Exam Last vitals Vital Signs Date Temp Pulse Resp B/P (MAP) Pulse Ox O2 O2 Flow FiO2 Time Delivery Rate 02/26/19 97.6 77 20 155/92 98 Room Air 09:53 (113) Airway: Adequate mouth opening, Adequate thyromental dist Mallampati: Mallampati III Teeth: Normal Lung: Normal Heart: Normal ASA Physical Status ASA physical status: 3 Emergency: None Pre-operative Attestations Prior to commencing anesthesia and surgery, the patient was re-evaluated, there was verification of: *The patient's identity *The results of appropriate recent lab work and preoperative vital signs *The above evaluation not changing prior to induction *Anesthetic plan, risk benefits, alternative and complications discussed with patient/family; questions answered; patient/family understands, accepts and wishes to proceed. SHANNAN HENSON DO Feb 26, 2019 10:21
[2019-02-26 10:39] VITALS: BP 113/74; PULSE 74; RESP 18
[2019-02-26 10:45] VITALS: BP 114/80; PULSE 72; RESP 16
[2019-02-26 10:51] VITALS: BP 116/81; PULSE 70; RESP 16
[2019-02-26 11:15] VITALS: BP 122/67; PULSE 75; RESP 18
--- NOTE | 2019-02-26 14:07 | PAC ---
Date/Time of Note Date/Time of Note DATE: 02/26/19 TIME: 14:06 Post-Anesthesia Notes Post-Anesthesia Note Last documented vital signs Vital Signs Date Temp Pulse Resp B/P (MAP) Pulse Ox O2 O2 Flow FiO2 Time Delivery Rate 02/26/19 97.8 75 18 122/67 100 Room Air 11:15 (85) Activity: WNL Respiratory function: WNL Cardiovascular function: WNL Mental status: Baseline Pain reasonably controlled: Yes Hydration appropriate: Yes Nausea/Vomiting absent: Yes SHANNAN HENSON DO Feb 26, 2019 14:07
== END 2019-02-26 11:08 | disposition home or self-care (01) ==
LOC: GIL 08:23
PROVIDERS: ATTEND Internal Medicine Gastroenterology
DX: K22.2 Esophageal obstruction (principal); K20.8 Other esophagitis
CPT/HCPCS: 43239; 88104; 88305; 88312; J2001; Z7610

== ENCOUNTER 2019-04-23 14:53 | Inpatient (IN) | payer BC ==
[~2019-04-23] VITALS: Ht 160 cm; Wt 65.5 kg
[~2019-04-23 14:53] MED LIST changes: +CARAS PO; +FERROUS SULFATE; +OMEPRAZOLE; +PANT40TA4 PO
[2019-04-23 15:07] VITALS: Ht 160 cm; Wt 65.5 kg
[2019-04-23] MEDS ORDERED: PANTOPRAZOLE 40 MG INJ IV STA (15:17)
[2019-04-23] MEDS ORDERED: ONDANSETRON 4 MG INJ IV PRN (17:00)
[2019-04-23] MEDS ORDERED: ACETAMINOPHEN 325 MG TAB PO PRN (17:00)
[2019-04-23 18:00] VITALS: BP 142/94; PULSE 83; RESP 16
[2019-04-23] MEDS ORDERED: morphine 2 MG INJ IV PRN (18:30)
--- NOTE | 2019-04-23 18:54 | CONS ---
DATE OF ADMISSION: 04/23/2019 DATE OF CONSULTATION: 04/23/2019 TYPE OF CONSULTATION: Gastroenterology. From Lopez Olea MD, to Serene Brower MD and Rebekah Gamboa MD. HISTORY OF PRESENT ILLNESS: The patient is a 43-year-old male who was scheduled for EGD today. He c ancelled the appointment because of the transportation. He comes to the emergency room complaining o f vomiting blood. The patient also has been losing weight. No chest pain, no shortness of breath, n o or COMPUTER AIDE problem. He does complain of dysphagia. He had EGD done last month and we dilated his e sophagus. PAST MEDICAL HISTORY: None. FAMILY HISTORY: Nothing contributory. SOCIAL HISTORY: He used to drink alcohol, quit 10 years ago. ALLERGIES: NONE. HOME MEDICATIONS: All reviewed. PHYSICAL EXAMINATION GENERAL: Well-built, nourished, not in distress. VITAL SIGNS: Stable. HEENT: Unremarkable. NECK: Supple. No thyromegaly, no lymphadenopathy. CARDIOVASCULAR: No murmur, gallop or click. LUNGS: Clear. ABDOMEN: Benign. EXTREMITIES: No edema. CENTRAL NERVOUS SYSTEM: Grossly within normal limits. LABORATORY DATA: Show hematocrit of 42, WBC is 11.8. CMP is grossly within normal limit except for elevation of the calcium. Coagulation also was normal. No imaging study was done during this hospitalization. IMPRESSION: 1. Hematemesis. 2. Dysphagia. 3. Esophageal stricture. PLAN: Start the patient on PPI and we will proceed with EGD and possible dilatation of stricture. Dictated By: LOPEZ MA/NTS Conf#: [id number] DID#: [id number] CC: REBEKAH GAMBOA MD; SERENE BROWER MD;*EndCC*
--- NOTE | 2019-04-23 18:54 | ERD ---
ER Documentation Chief Complaint Chief Complaint hematemesis 'bright red' x1 today; missed appt w dr Olea today HPI Patient is a 43-year-old male with no medical problems who presents with vomiting blood. He also complains of chest pain. He said that the symptoms started today. His pain is a little bit better now but still there. He has had no treatment as of yet. He has no fevers. He was supposed to have an endoscopy done by Dr. Olea today but unfortunately his ride did not show up and he was not able to get to the office for the procedure. ROS All systems reviewed and are negative except as per history of present illness. Medications Home Meds Reported Medications Sucralfate* (Carafate*) 1 Gm/10 Ml Susp, 2 TSP PO QID, EA 04/23/19 Pantoprazole* (Pantoprazole*) 40 Mg Tablet.dr, 40 MG PO AC BREAKFAST DINNER, TAB 04/23/19 Discontinued Reported Medications [Omeprazole] No Conflict Check 02/26/19 [Ferrous Sulfate] No Conflict Check 02/26/19 Discontinued Scripts Omeprazole* (Omeprazole*) 20 Mg Capsule., 20 MG PO BID, #20 Prov:YO GILBERT PA-C 12/09/18 Famotidine* (Pepcid*) 20 Mg Tablet, 20 MG PO BID for 4 Days, TAB Prov:YO GILBERT PA-C 12/09/18 Lorazepam* (Lorazepam*) 1 Mg Tablet, 2 MG PO BID, #14 TAB Prov:JANNA BHANDARI MD 08/29/17 Allergies Allergies: Coded Allergies: No Known Allergy (Unverified , 04/23/19) PMhx/Soc History of Surgery: No Anesthesia Reaction: No Hx Neurological Disorder: No Hx Respiratory Disorders: No Hx Cardiac Disorders: No Hx Psychiatric Problems: No Hx Miscellaneous Medical Probl: No Hx Alcohol Use: No Hx Substance Use: No Hx Tobacco Use: No Smoking Status: Never smoker FmHx Family History: No diabetes Physical Exam Vitals Vital Signs Date Temp Pulse Resp B/P (MAP) Pulse Ox O2 O2 Flow FiO2 Time Delivery Rate 04/23/19 99.2 75 16 134/95 98 Room Air 15:35 (108) 04/23/19 99.2 83 16 122/87 98 15:07 (99) Physical Exam Const: No acute distress Head: Atraumatic Eyes: Normal Conjunctiva ENT: Normal External Ears, Nose and Mouth. Neck: Full range of motion. No meningismus. Resp: Clear to auscultation bilaterally Cardio: Regular rate and rhythm, no murmurs Abd: Soft, non tender, non distended. Normal bowel sounds Skin: No petechiae or rashes Back: No midline or flank tenderness Ext: No cyanosis, or edema Neur: Awake and alert Psych: Normal Mood and Affect Result Diagram: 04/23/19 1523 04/23/19 1524 Results 24 hrs Laboratory Tests Test 04/23/19 15:23 04/23/19 15:24 White Blood Count 11.8 10^3/ul Red Blood Count 5.10 10^6/ul Hemoglobin 12.7 g/dl Hematocrit 42.0 % Mean Corpuscular Volume 82.4 fl Mean Corpuscular Hemoglobin 24.9 pg Mean Corpuscular Hemoglobin Concent 30.2 g/dl Red Cell Distribution Width 16.4 % Platelet Count 302 10^3/UL Mean Platelet Volume 9.1 fl Immature Granulocytes % 0.300 % Neutrophils % 67.9 % Lymphocytes % 21.2 % Monocytes % 9.2 % Eosinophils % 0.9 % Basophils % 0.5 % Nucleated Red Blood Cells % 0.0 /100WBC Immature Granulocytes # 0.040 10^3/ul Neutrophils # 8.0 10^3/ul Lymphocytes # 2.5 10^3/ul Monocytes # 1.1 10^3/ul Eosinophils # 0.1 10^3/ul Basophils # 0.1 10^3/ul Nucleated Red Blood Cells # 0.0 10^3/ul Prothrombin Time 12.7 Sec Prothrombin Time Ratio 1.0 INR International Normalized Ratio 0.94 Activated Partial Thromboplast Time 30.0 Sec Sodium Level 140 mmol/L Potassium Level 4.4 mmol/L Chloride Level 98 mmol/L Carbon Dioxide Level 32 mmol/L Anion Gap 10 Blood Urea Nitrogen 6 mg/dl Creatinine 0.64 mg/dl Est Glomerular Filtrat Rate mL/min > 60 mL/min Glucose Level 109 mg/dl Calcium Level 10.7 mg/dl Total Bilirubin 0.4 mg/dl Direct Bilirubin 0.00 mg/dl Indirect Bilirubin 0.4 mg/dl Aspartate Amino Transf (AST/SGOT) 23 IU/L Alanine Aminotransferase (ALT/SGPT) 18 IU/L Alkaline Phosphatase 110 IU/L Troponin I < 0.012 ng/ml Total Protein 9.0 g/dl Albumin 4.6 g/dl Globulin 4.40 g/dl Albumin/Globulin Ratio 1.04 Current Medications Medications Dose Sig/Terri Start Time Status Last (Trade) Ordered Route PRN Stop Time Admin Dose Reason Admin 40 mg ONCE STAT 04/23/19 DC 04/23/19 Pantoprazole IV 15:17 04/23/19 15:28 (Protonix 15:18 Iv) Procedures/MDM Patient is a 43-year-old male presents with acute GI bleed with hematemesis. The patient will be admitted to the care of Dr. Fox who is covering for Dr. Mata. I spoke with Dr. Olea who plans to do an endoscopy in the hospital. The patient has anemia with a hemoglobin of 12.7 but does not need transfusion at this time. However if his blood count drops further he may require transfusion. He was given Protonix IV. He will be admitted to a medical surgical inpatient bed. Departure Diagnosis: Primary Impression: GI bleed GI bleed type/associated pathology: unspecified gastrointestinal hemorrhage type Qualified Codes: K92.2 - Gastrointestinal hemorrhage, unspecified Additional Impression: Hematemesis Nausea presence: with nausea Qualified Codes: K92.0 - Hematemesis Condition: ISSA Reddy MD Apr 23, 2019 18:54
[2019-04-23 20:28] VITALS: BP 137/83; PULSE 72; RESP 18
[2019-04-24] VITALS (10 sets, daily range): BP systolic 109–135; BP diastolic 66–83; PULSE 59–83; RESP 16–27
[2019-04-24] MEDS ORDERED: PANTOPRAZOLE 40 MG INJ IV SCH (06:00)
--- NOTE | 2019-04-24 12:08 | HPN ---
Date/Time of Note Date/Time of Note DATE: 04/24/19 TIME: 12:08 Interval H&P Admission Note Pt. seen H&P reviewed: No system changes LOPEZ PETERS MD Apr 24, 2019 12:08
--- NOTE | 2019-04-24 13:01 | PREAC ---
Date/Time of Note Date/Time of Note DATE: 04/24/19 TIME: 13:00 Anesthesia Eval and Record Evaluation Time Pre-Procedure Interview DATE: 04/24/19 TIME: 13:00 Age 43 Sex male NPO: 8 hrs Preoperative diagnosis GI Bleed Planned procedure EGD Past Medical History Past Medical History: Includes Hepatic: Alcohol abuse (sober x 2 years) GI: Other (esophageal stricture) Surgery & Anesthesia Issues No known issue Meds Anticoagulation: No Beta James within 24 hr: No Reason Beta James not given: Pt. not on B-James Reported Medications Sucralfate* (Carafate*) 1 Gm/10 Ml Susp, 2 TSP PO QID, EA 04/23/19 Pantoprazole* (Pantoprazole*) 40 Mg Tablet.dr, 40 MG PO AC BREAKFAST DINNER, TAB 04/23/19 Discontinued Reported Medications [Omeprazole] No Conflict Check 02/26/19 [Ferrous Sulfate] No Conflict Check 02/26/19 Discontinued Scripts Omeprazole* (Omeprazole*) 20 Mg Capsule.dr, 20 MG PO BID, #20 Prov:YO GILBERT PA-C 12/09/18 Famotidine* (Pepcid*) 20 Mg Tablet, 20 MG PO BID for 4 Days, TAB Prov:YO GILBERT PA-C 12/09/18 Lorazepam* (Lorazepam*) 1 Mg Tablet, 2 MG PO BID, #14 TAB Prov:JANNA BHANDARI MD 08/29/17 Current Medications Ondansetron HCl (Zofran Inj) 4 mg BRIDGE ORDER PRN IV NAUSEA/VOMITING; Start 04/23/19 at 17:00; Stop 04/24/19 at 16:59 Acetaminophen (Tylenol Tab) 650 mg ER BRIDGE PRN PO .MILD PAIN 1-3 OR TEMP; Start 04/23/19 at 17:00; Stop 04/24/19 at 16:59 Pantoprazole (Protonix Iv) 40 mg BID@,18 IV Last administered on 04/24/19at 0 6:42; Admin Dose 40 MG; Start 04/24/19 at 06:00 Morphine Sulfate (morphine) 2 mg Q4H PRN IV SEVERE PAIN LEVEL 7-10; Start 04/23/19 at 18:30 Meds reviewed: Yes Allergies Coded Allergies: No Known Allergy (Unverified , 04/23/19) Allergies Reviewed: Yes Labs/Studies Labs Reviewed: Reviewed by anesthesiologist Result Diagram: 04/24/19 0551 04/24/19 0551 Laboratory Tests 04/24/19 05:51 Blood Bank Test 04/23/19 15:24 Antibody Screen NEGATIVE Blood Type O POSITIVE test: N/A Pre-procedure Exam Last vitals Vital Signs Date Temp Pulse Resp B/P (MAP) Pulse Ox O2 O2 Flow FiO2 Time Delivery Rate 04/24/19 98.6 66 18 121/80 97 07:29 (94) 04/23/19 Room Air 17:35 Airway: Adequate mouth opening, Adequate thyromental dist Mallampati: Mallampati II Teeth: Normal Lung: Normal Heart: Normal ASA Physical Status ASA physical status: 2 Emergency: E Planned Anesthetic General/MAC: MAC Pre-operative Attestations Prior to commencing anesthesia and surgery, the patient was re-evaluated, there was verification of: *The patient's identity *The results of appropriate recent lab work and preoperative vital signs *The above evaluation not changing prior to induction *Anesthetic plan, risk benefits, alternative and complications discussed with patient/family; questions answered; patient/family understands, accepts and wishes to proceed. MAGDY ROSARIO CRNA Apr 24, 2019 13:01
[2019-04-24] MEDS ORDERED: LIDOCAINE 2% (SDV) 5 ML INJ ONE ×2 (13:18→13:40)
[2019-04-24] MEDS ORDERED: PROPOFOL 20 ML ONE ×2 (13:18→13:40)
--- NOTE | 2019-04-24 16:07 | HP ---
Date/Time of Note Date/Time of Note DATE: 04/24/19 TIME: 16:06 Assessment/Plan VTE Prophylaxis Risk score (from Ns)>0 risk: 2 SCD applied (from [facility] [place]): Yes Pharmacological prophylaxis: NA/contraindicated Pharm contraindication: bleeding Lines/Catheters IV Catheter Type (from [facility]): Peripheral IV Urinary Cath still in place: No Assessment/Plan Hospital Course 1) GI bleed - monitor H/H - GI to see patient - PPI Result Diagram: 04/24/19 0551 04/24/19 0551 Results 24hrs Laboratory Tests Test 04/24/19 05:51 White Blood Count 7.9 # Red Blood Count 4.74 Hemoglobin 11.9 L Hematocrit 39.3 L Mean Corpuscular Volume 82.9 Mean Corpuscular Hemoglobin 25.1 L Mean Corpuscular Hemoglobin Concent 30.3 L Red Cell Distribution Width 16.4 H Platelet Count 282 Mean Platelet Volume 9.9 Immature Granulocytes % 0.300 Neutrophils % 55.9 Lymphocytes % 29.6 Monocytes % 11.7 H Eosinophils % 1.9 Basophils % 0.6 Nucleated Red Blood Cells % 0.0 Immature Granulocytes # 0.020 Neutrophils # 4.4 Lymphocytes # 2.3 Monocytes # 0.9 Eosinophils # 0.2 Basophils # 0.1 Nucleated Red Blood Cells # 0.0 Sodium Level 140 Potassium Level 4.4 Chloride Level 106 Carbon Dioxide Level 29 Anion Gap 5 Blood Urea Nitrogen 7 Creatinine 0.59 L Est Glomerular Filtrat Rate mL/min > 60 Glucose Level 94 Calcium Level 9.3 HPI/ROS Admit Date/Time Admit Date/Time Apr 23, 2019 at 16:37 Hx of Present Illness Patient without medical problems comes in with rectal bleeding. He was seen in Dr. Olea's office and then sent to the emergency room. Patient admitted for further evaluation. PMH/Family/Social Past Medical History Medications Current Medications Ondansetron HCl (Zofran Inj) 4 mg BRIDGE ORDER PRN IV NAUSEA/VOMITING; Start 04/23/19 at 17:00; Stop 04/24/19 at 16:59 Acetaminophen (Tylenol Tab) 650 mg ER BRIDGE PRN PO .MILD PAIN 1-3 OR TEMP; Start 04/23/19 at 17:00; Stop 04/24/19 at 16:59 Pantoprazole (Protonix Iv) 40 mg BID@06,18 IV Last administered on 04/24/19at 06:42; Admin Dose 40 MG; Start 04/24/19 at 06:00 Morphine Sulfate (morphine) 2 mg Q4H PRN IV SEVERE PAIN LEVEL 7-10; Start 04/23/19 at 18:30 Coded Allergies: No Known Allergy (Unverified , 04/23/19) Social History Smoking Status: Never smoker Exam/Review of Systems Vital Signs Vitals Vital Signs Date Temp Pulse Resp B/P (MAP) Pulse Ox O2 O2 Flow FiO2 Time Delivery Rate 04/24/19 72 20 116/72 97 Room Air 14:27 (87) 04/24/19 97.8 6.0 14:00 Intake and Output 04/23/19 04/23/19 04/24/19 1515:00 23:00 07:00 IntakeIntake Total 400 ml BalanceBalance 400 ml Exam Constitutional: well developed Head: normocephalic, atraumatic Neck: supple Respiratory: clear to auscultation Cardiovascular: regular rate and rhythm Gastrointestinal: soft, non-tender Extremities: normal pulses PAT GAMBOA Apr 24, 2019 16:07
--- NOTE | 2019-04-24 17:24 | DS ---
Date/Time of Note Date/Time of Note DATE: 04/24/19 TIME: 17:23 Discharge Summary Admission/Discharge Info Admit Date/Time Apr 23, 2019 at 16:37 Discharge Date/Time 04/24/19 Discharge Diagnosis 1) GI bleed Patient Condition: Fair Consults Gastroenterology Procedures EGD Hx of Present Illness Patient without medical problems comes in with hemetemesis. He was seen in Dr. Olea's office and then sent to the emergency room. Patient admitted for further evaluation. Hospital Course Patient without medical problems comes in with hemetemesis. He was seen in Dr. Olea's office and then sent to the emergency room. Patient admitted for further evaluation. Patient underwent EGD and after procedure, patient was deemed to be stable and so was sent home. 1) GI bleed - monitor H/H - GI to see patient - PPI Home Meds Reported Medications Sucralfate* (Carafate*) 1 Gm/10 Ml Susp, 2 TSP PO QID, EA 04/23/19 Pantoprazole* (Pantoprazole*) 40 Mg Tablet.dr, 40 MG PO AC BREAKFAST DINNER, TAB 04/23/19 Discontinued Reported Medications [Omeprazole] No Conflict Check 02/26/19 [Ferrous Sulfate] No Conflict Check 02/26/19 Discontinued Scripts Omeprazole* (Omeprazole*) 20 Mg Capsule.dr, 20 MG PO BID, #20 Prov:YO GILBERT PA-C 12/09/18 Famotidine* (Pepcid*) 20 Mg Tablet, 20 MG PO BID for 4 Days, TAB Prov:YO GILBERT PA-C 12/09/18 Lorazepam* (Lorazepam*) 1 Mg Tablet, 2 MG PO BID, #14 TAB Prov:HUY BHANDARI MD 08/29/17 Primary Care Provider Huy Guillory MD Pending Labs Laboratory Tests Test 04/24/19 05:51 White Blood Count 7.9 10^3/ul (4.8-10.8) Red Blood Count 4.74 10^6/ul (4.70-6.10) Hemoglobin 11.9 g/dl (14.0-18.0) Hematocrit 39.3 % (42.0-52.0) Mean Corpuscular Volume 82.9 fl (82.0-101.0) Mean Corpuscular Hemoglobin 25.1 pg (29.0-33.0) Mean Corpuscular Hemoglobin Concent 30.3 g/dl (32.0-37.0) Red Cell Distribution Width 16.4 % (11.5-14.5) Platelet Count 282 10^3/UL (140-415) Mean Platelet Volume 9.9 fl (7.4-10.4) Immature Granulocytes % 0.300 % (0.001-0.429) Neutrophils % 55.9 % (39.0-77.0) Lymphocytes % 29.6 % (15.0-51.0) Monocytes % 11.7 % (0.0-11.0) Eosinophils % 1.9 % (0.0-7.0) Basophils % 0.6 % (0.0-2.0) Nucleated Red Blood Cells % 0.0 /100WBC (0.0-0.0) Immature Granulocytes # 0.020 10^3/ul (0.0-0.031) Neutrophils # 4.4 10^3/ul (1.6-7.5) Lymphocytes # 2.3 10^3/ul (0.8-2.9) Monocytes # 0.9 10^3/ul (0.3-0.9) Eosinophils # 0.2 10^3/ul (0.0-0.5) Basophils # 0.1 10^3/ul (0.0-0.1) Nucleated Red Blood Cells # 0.0 10^3/ul (0.0-0.0) Sodium Level 140 mmol/L (135-144) Potassium Level 4.4 mmol/L (3.5-5.1) Chloride Level 106 mmol/L (97-110) Carbon Dioxide Level 29 mmol/L (21-31) Anion Gap 5 (5-13) Blood Urea Nitrogen 7 mg/dl (7-20) Creatinine 0.59 mg/dl (0.61-1.24) Est Glomerular Filtrat Rate mL/min > 60 mL/min (>60) Glucose Level 94 mg/dl (70-220) Calcium Level 9.3 mg/dl (8.4-10.2) PAT GAMBOA Apr 24, 2019 17:24
== END 2019-04-24 19:24 | disposition home or self-care (01) | DRG 379 ==
LOC: E/R 14:53 → 2NE 16:37
PROVIDERS: ADMIT Internal Medicine; ATTEND Internal Medicine
PROC: 0DJ08ZZ Inspection of Upper Intestinal Tract, Via Natural or Artificial Opening Endoscopic (ICD-10-PCS; principal; 2019-04-24 12:30)
DX: K92.0 Hematemesis (principal); R13.10 Dysphagia, unspecified; K22.2 Esophageal obstruction
CPT/HCPCS: 36415; 80048; 80053; 84484; 85025; 85610; 85730; 86850; 86900; 86901; 93005; 96374; C9113